=== PATIENT | male | born 1990 | race Hispanic/Latino ===

== ENCOUNTER 2019-01-30 13:40 | Emergency (ER) | payer SELFPAY ==
[2019-01-30] MEDS ORDERED: Acetaminophen 500 MG TAB ONE (14:29)
[2019-01-30] MEDS ORDERED: Ondansetron ODT 4 MG TAB ONE (14:29)
== END 2019-01-30 14:46 | disposition home or self-care (01) ==
LOC: ERS 13:40
DX: F43.0 Acute stress reaction (principal); R00.2 Palpitations; M79.10 Myalgia, unspecified site; F17.210 Nicotine dependence, cigarettes, uncomplicated
CPT/HCPCS: 93005; Q0162